=== PATIENT | male | born 2000 | race African-American/Black ===

== ENCOUNTER 2021-01-26 18:54 | Emergency (ER) | payer OTHER ==
[~2021-01-26] VITALS: Ht 160 cm; Wt 109.0 kg
[2021-01-26 19:18] VITALS: BP 147/73
[2021-01-26] MEDS ORDERED: oxyCODONE IR 5 MG TABLET PO ONE (19:30)
--- NOTE | 2021-01-26 20:31 | RAD ---
XR EXAM OF ANKLE_RIGHT 3VIEWS DATE: 01/26/2021 7:19 PM INDICATION: ankle pain, medial malleolus COMPARISON: None. FINDINGS: Bones: Subtle lucency extending superomedially across the medial malleolus. Joints: The ankle mortise is congruent. No widening of the distal tibiofibular syndesmosis. Miscellaneous: None. IMPRESSION: Subtle lucency extending superomedially across the medial malleolus, which could represent subtle non displaced fracture versus nutrient foramen. Consider 10-14 day follow-up radiograph. Electronically signed by: Luis Lyn MD (01/26/2021 8:29 PM) TWIN
--- NOTE | 2021-01-26 20:45 | PHYS DOC ---
Past Medical History Past Surgical History: No Surgical History General Adult EDM: Chief Complaint: LOWEREXTREMITY INJURY HPI: HPI: 20-year-old male presents the emergency department complaining of right medial ankle pain after he hit his ankle directly on a pole at work last night around 0230 in the morning. He reports pain in the medial aspect of the ankle and nowhere else. He has never had pain in his ankle before any other injury to report. The patient denies nausea, vomiting, fever, chills, or any other complaints. Review of Systems: Review of Systems: Constitutional: Negative except what was mentioned in HPI. Eyes: Negative except what was mentioned in HPI. HENT: Negative except what was mentioned in HPI. Respiratory: Negative except what was mentioned in HPI. Cardiovascular: Negative except what was mentioned in HPI. GI: Negative except what was mentioned in HPI. : Negative except what was mentioned in HPI. Musculoskeletal: Negative except what was mentioned in HPI. Integument: Negative except what was mentioned in HPI. Neurologic: Negative except what was mentioned in HPI. Heart Score: C/O Chest Pain: No Current Medications: Current Medications Medications (Trade) Dose Ordered Sig/David Start Time Stop Time Status Last Admin Dose Admin Oxycodone HCl (Roxicodone) 5 mg 1X ONCE 01/26/21 19:30 01/26/21 19:31 DC 01/26/21 19:24 5 MG Allergies: Allergies: Allergies Coded Allergies Type Severity Reaction Last Updated Verified No Known Drug Allergies 01/26/21 No Physical Exam: PE: Constitutional: No acute distress, non-toxic appearance. HENT: Atraumatic, normocephalic. Eyes: Conjunctiva normal, normal tracking. Neck: Normal range of motion, supple. Cardiovascular: Heart rate regular rhythm. 2+ dorsalis pedis pulses, capillary refill less than 2 seconds bilateral lower extremities Lungs & Thorax: No respiratory distress, symmetrical expansion. Skin: Warm, dry, no overlying skin changes over the lower extremities. Extremities: No external sign of trauma over the lower extremities. There is tenderness around the medial malleolus of the right ankle, no lateral malleolus tenderness, no midfoot tenderness and no navicular tenderness. Left ankle with a normal limits. Patient is able to bear weight and walk Neurologic: Alert and oriented X 3. Normal motor function of the lower extremities bilaterally. Normal sensory function of the lower extremities. No focal deficits noted. GCS 15. Psychologic: Affect normal, judgment normal, mood normal. Current Patient Data: Vital Signs: Vital Signs Date Time Temp Pulse Resp B/P (MAP) Pulse Ox O2 Delivery O2 Flow Rate FiO2 01/26/21 20:04 16 98 Room Air 01/26/21 19:18 99.3 77 147/73 (97) 99.3 Radiology/Procedures: Radiology/Procedures: XR EXAM OF ANKLE_RIGHT 3VIEWS DATE: 01/26/2021 7:19 PM INDICATION: ankle pain, medial malleolus COMPARISON: None. FINDINGS: Bones: Subtle lucency extending superomedially across the medial malleolus. Joints: The ankle mortise is congruent. No widening of the distal tibiofibular syndesmosis. Miscellaneous: None. IMPRESSION: Subtle lucency extending superomedially across the medial malleolus, which could represent subtle nondisplaced fracture versus nutrient foramen. Consider 10-14 day follow-up radiograph. Electronically signed by: Luis Lyn MD (01/26/2021 8:29 PM) Course & Med Decision Making: Course & Med Decision Making X-ray as above, patient advised to follow-up in 2 weeks for repeat x-ray, patient was given a cam boot for discharge and patient is able to bear weight appropriately. Departure Departure Impression: Primary Impression: Contusion of right ankle, initial encounter Disposition: HOME / SELF CARE / HOMELESS Condition: GOOD Referrals: LEFTY HOLDEN DO Patient Instructions: Ankle Pain Additional Instructions: The radiologist read your ankle x-ray as no acute fracture, but recommended follow-up x-rays in 2 weeks to determine if there is a fracture that we missed. You may weight-bear as tolerated and follow-up with orthopedic doctor to schedule out another x-ray. You may also follow-up with her primary care doctor for this purpose. You were seen in the emergency department for a musculoskeletal problem that will likely get better over time. You may utilize something called the "RICE" protocol (Rest, Ice, Compresses, Elevation) to help alleviate your pain: - Hold off on doing intense exercise that may make the pain worse. Sometimes gentle stretching can provide relief, but be careful to avoid further injury. It is important to perform gentle range of motion exercises to prevent stiff joints and chronic pain. - Use ice packs over the affected area to help decrease your pain. Ice can work as a numbing agent over your painful area. For the first 24 hours, apply ice 2-4 times per day for a maximum 15-20 minutes each time. Ice should be in a plastic bag. - You may use warm compresses to help improve blood flow and decrease swelling. Alternating with ice packs and warm compresses works well. - You may elevate the affected area to help improve drainage and reduce swelling, which will also help your pain. ERBEKAH CONDE DO Jan 26, 2021 20:45
== END 2021-01-26 20:55 | disposition home or self-care (01) ==
LOC: ER 18:54
DX: S90.01XA Contusion of right ankle, initial encounter (principal); W22.8XXA Striking against or struck by other objects, initial encounter; Y93.89 Activity, other specified; Y92.69 Other specified industrial and construction area as the place of occurrence of the external cause; Y99.0 Civilian activity done for income or pay
CPT/HCPCS: 73610; 99283; A6450